=== PATIENT | male | born 1945 | race Caucasian/White ===

== ENCOUNTER 2016-08-14 16:33 | Inpatient (IN) | payer MEDICARE ==
[~2016-08-14] VITALS: Ht 177.8 cm; Wt 91.2 kg
[2016-08-14] MEDS ORDERED: TAMS0.4C34 PO (17:05)
[2016-08-14] MEDS ORDERED: HYDR25TA4 PO (17:05)
[2016-08-14] MEDS ORDERED: METF500T4 PO (17:05)
[2016-08-14] MEDS ORDERED: METO50TA3 PO (17:05)
[2016-08-14] MEDS ORDERED: ACET325T53 PO (17:05)
[2016-08-14] MEDS ORDERED: PRAZ2CAP2 PO (17:05)
--- NOTE | 2016-08-14 18:00 | NUR ---
PT MEDICALLY CLEARED, NO MHU AVAILABLE AT THIS TIME. TELEPHONE CLERKS SUPERVISOR AWARE.
--- NOTE | 2016-08-14 19:20 | NUR ---
Ray Peres contacted for PET evaluation and possible voluntary admission, ETA 20min.
--- NOTE | 2016-08-14 19:42 | NUR ---
Ray Peres at bedside for PET evaluation.
--- NOTE | 2016-08-14 21:29 | NUR ---
Pt. admitted to [facility], under care of Dr. Nowak. Belongs List completed
[2016-08-14] MEDS ORDERED: MAGNESIUM HYDROXIDE 30 ML LIQUID UDC PO PRN (22:30)
[2016-08-14] MEDS ORDERED: CLONAZEPAM 0.5 MG TABLET PO PRN (22:30)
[2016-08-14] MEDS ORDERED: TEMAZEPAM 7.5 MG CAPSULE PO PRN (22:30)
[2016-08-14] MEDS ORDERED: MAG HYDROX/AL HYDROX/SIMETH 30 ML LIQUID UDC PO PRN (22:30)
[2016-08-14] MEDS: ACETAMINOPHEN 325 MG TABLET PO PRN (22:48)
[2016-08-14] MEDS ORDERED: ACETAMINOPHEN 325 MG TABLET ONE (22:55)
[2016-08-14] MEDS ORDERED: HYDROCODONE/APAP 5-325MG TABLET PO PRN (23:15)
[2016-08-14] MEDS ORDERED: ONDANSETRON 4 MG/2 ML VIAL IV PRN (23:15)
[2016-08-14] MEDS ORDERED: ACETAMINOPHEN 325 MG TABLET PO PRN (23:15)
[2016-08-14] MEDS ORDERED: Z GUARD REMEDY PASTE 57 GM TUBE TOP PRN (23:15)
[2016-08-14] MEDS ORDERED: hydrALAZINE HCL 10 MG TABLET PO PRN (23:45)
[2016-08-14] MEDS ORDERED: DEXTROSE 50% 50 ML DISP.SYRIN IV PRN (23:45)
[2016-08-15] MEDS ORDERED: ONDANSETRON ODT 4 MG TAB.RAPDIS SL PRN (02:15)
[2016-08-15] MEDS: BLOOD SUGAR DIAGNOSTIC 1 EACH STRIP VI SCH ×4 (06:29→20:10)
[2016-08-15] MEDS: PANTOPRAZOLE SODIUM 40 MG TABLET.DR PO SCH ×2 (07:00→09:51)
[2016-08-15 07:30] VITALS: BP 102/66
[2016-08-15 07:30] LABS: BASOPHILS % (AUTO) 0.5 % (0.0-2.0); EOSINOPHILS # (AUTO) 0.4 K/uL (0.0-0.7); EOSINOPHILS % (AUTO) 6.1 % (0.0-7.0); HEMATOCRIT 35.6 % (40-50); HEMOGLOBIN 11.9 G/DL (14.0-18.0); LYMPHOCYTES # (AUTO) 1.4 K/UL (0.8-4.8); LYMPHOCYTES % (AUTO) 23.6 % (20.5-51.5); MEAN CORPUSCULAR HEMOGLOBIN 28.9 UUG (27.0-31.0); MEAN CORPUSCULAR HGB CONC 34 g/dL (32.0-37.0); MEAN CORPUSCULAR VOLUME 86.2 FL (82.0-92.0); MONOCYTES # (AUTO) 0.7 K/UL (0.1-1.30); MONOCYTES % (AUTO) 11.1 % (0.0-11.0); NEUTROPHILS # (AUTO) 3.5 K/UL (1.8-8.9); NEUTROPHILS % (AUTO) 58.7 % (38.5-71.5); PLATELET COUNT (AUTO) 199 K/UL (150-450); RED BLOOD CELL COUNT(AUTO) 4.13 MIL/UL (4.7-6.1)
[2016-08-15 08:20] LABS: CREATININE 1.4 mg/dL (0.6-1.3); MAGNESIUM 1.9 mg/dL (1.8-2.4)
[2016-08-15 12:30] LABS: BILIRUBIN,DIRECT 0.1 mg/dL (0.0-0.2); BILIRUBIN,TOTAL 0.8 mg/dL (0.2-1.0); TOTAL PROTEIN, SERUM 7.4 g/dL (6.4-8.2)
[2016-08-15] MEDS: METOPROLOL TARTRATE 50 MG TABLET PO SCH (16:38)
[2016-08-15] MEDS: PRAZOSIN HCL 1 MG CAPSULE PO SCH (16:46)
[2016-08-15 16:53] VITALS: BP 127/83
[2016-08-15] MEDS: METFORMIN HCL 500 MG TABLET PO SCH (17:35)
[2016-08-15 18:17] LABS: THYROID STIMULATING HORMONE 17.867 mIU/mL (0.358-3.740)
[2016-08-15] MEDS: ACETAMINOPHEN 325 MG TABLET PO PRN (18:36)
[2016-08-15] MEDS: ATORVASTATIN 10 MG TABLET PO SCH (20:10)
[2016-08-15] MEDS: TAMSULOSIN HCL 0.4 MG CAP.SR.24H PO SCH (20:11)
[2016-08-15 20:21] VITALS: BP 100/66
[2016-08-15] MEDS: INSULIN REGULAR, HUMAN 300 UNIT/3 ML VIAL SQ PRN (20:21)
[2016-08-15] MEDS ORDERED: SERTRALINE HCL 50 MG TABLET PO SCH (21:00)
[2016-08-16] MEDS: PANTOPRAZOLE SODIUM 40 MG TABLET.DR PO SCH (06:19)
[2016-08-16] MEDS: BLOOD SUGAR DIAGNOSTIC 1 EACH STRIP VI SCH ×4 (06:33→20:43)
--- NOTE | 2016-08-16 06:53 | NUR ---
GPS: REMAIN CALM AND COOPERATIVE WITH MEDS AND CARE. SLEPT 06:30 HRS THROUGH THE NIGHT. BLOOD SUGAR 91 MG/DL. NO BEHAVIOR PROBLEM NOTED.
[2016-08-16 07:30] VITALS: BP 111/80
[2016-08-16] MEDS: PRAZOSIN HCL 1 MG CAPSULE PO SCH ×2 (08:22→16:41)
[2016-08-16] MEDS: METOPROLOL TARTRATE 50 MG TABLET PO SCH ×2 (08:23→16:40)
[2016-08-16] MEDS: METFORMIN HCL 500 MG TABLET PO SCH ×2 (08:23→17:06)
[2016-08-16 08:55] LABS: CREATININE 1.3 mg/dL (0.6-1.3); POTASSIUM 4.4 mmol/L (3.5-5.1)
[2016-08-16] MEDS ORDERED: SERTRALINE HCL 50 MG TABLET PO SCH (12:15)
[2016-08-16] MEDS: SERTRALINE HCL 100 MG TABLET PO SCH (13:02)
[2016-08-16] MEDS: ACETAMINOPHEN 325 MG TABLET PO PRN (14:19)
[2016-08-16] MEDS: HYDROCHLOROTHIAZIDE 25 MG TABLET PO SCH (14:49)
--- NOTE | 2016-08-16 15:46 | NUR ---
Initial discharge instructions: The patient is currently homeless. His is currently inpatient at [facility] mental health unit. MANI asked the patient if she may contact his 's SW at [facility] and he agreed as long as his is okay with this. The patient allowed SW to contact his . MANI called patient's Bernardino Isabel at [facility] (access code [id number]) to see if she authorizes this SW to speak with her SW there in order to coordinate a DC plan for both patients. MANI has called MANI Ramirez and left her a voicemail, awaiting call back. MANI will speak with patient, family, and MD regarding most appropriate discharge plan. SS will form a safe and proper discharge.
[2016-08-16 16:00] VITALS: BP 99/71
[2016-08-16] MEDS: LEVOTHYROXINE SODIUM 25 MCG TABLET PO SCH (16:40)
[2016-08-16 20:08] VITALS: BP 116/82
[2016-08-16] MEDS: TAMSULOSIN HCL 0.4 MG CAP.SR.24H PO SCH (20:37)
[2016-08-16] MEDS: ATORVASTATIN 10 MG TABLET PO SCH ×2 (20:44→20:57)
[2016-08-17] MEDS: PANTOPRAZOLE SODIUM 40 MG TABLET.DR PO SCH (06:42)
[2016-08-17] MEDS: LEVOTHYROXINE SODIUM 25 MCG TABLET PO SCH (06:42)
[2016-08-17] MEDS: BLOOD SUGAR DIAGNOSTIC 1 EACH STRIP VI SCH ×4 (06:47→21:12)
[2016-08-17 07:30] VITALS: BP 130/89
[2016-08-17] MEDS: METOPROLOL TARTRATE 50 MG TABLET PO SCH ×2 (09:38→16:42)
[2016-08-17] MEDS: HYDROCHLOROTHIAZIDE 25 MG TABLET PO SCH (09:38)
[2016-08-17] MEDS: PRAZOSIN HCL 1 MG CAPSULE PO SCH ×2 (09:39→16:43)
[2016-08-17] MEDS: SERTRALINE HCL 100 MG TABLET PO SCH (09:39)
[2016-08-17] MEDS: METFORMIN HCL 500 MG TABLET PO SCH ×2 (09:40→18:09)
[2016-08-17] MEDS: ACETAMINOPHEN 325 MG TABLET PO PRN ×2 (10:06→23:19)
--- NOTE | 2016-08-17 11:00 | NUR ---
1100 Pt. reported tylenol effective for THOMPSON and back pain 04/07.
[2016-08-17 15:32] VITALS: BP 101/66
--- NOTE | 2016-08-17 19:00 | NUR ---
Pt. cooperative with nursing care, no distress noted. Pt. indep. of all ADL'S and eats all meals in dinning room. Pt. is social with staff and other Patients. Pt. uses phone to talk during the day.
[2016-08-17 20:24] VITALS: BP 125/78
[2016-08-17] MEDS: ATORVASTATIN 10 MG TABLET PO SCH (21:40)
[2016-08-17] MEDS: TAMSULOSIN HCL 0.4 MG CAP.SR.24H PO SCH (21:40)
--- NOTE | 2016-08-17 23:22 | NUR ---
PRN tylenol requested by patient for back pain 8 out of 10. Tylenol given per MD order. Will continue to monitor
[2016-08-18 07:30] VITALS: BP 120/85
[2016-08-18] MEDS: BLOOD SUGAR DIAGNOSTIC 1 EACH STRIP VI SCH ×4 (07:46→21:00)
[2016-08-18] MEDS: PANTOPRAZOLE SODIUM 40 MG TABLET.DR PO SCH (07:46)
[2016-08-18] MEDS: LEVOTHYROXINE SODIUM 25 MCG TABLET PO SCH (07:46)
[2016-08-18] MEDS: SERTRALINE HCL 100 MG TABLET PO SCH (08:39)
[2016-08-18] MEDS: METFORMIN HCL 500 MG TABLET PO SCH ×2 (08:40→17:12)
[2016-08-18] MEDS: HYDROCHLOROTHIAZIDE 25 MG TABLET PO SCH (08:40)
[2016-08-18] MEDS: METOPROLOL TARTRATE 50 MG TABLET PO SCH ×2 (08:40→22:57)
[2016-08-18] MEDS: PRAZOSIN HCL 1 MG CAPSULE PO SCH ×2 (08:41→23:07)
[2016-08-18] MEDS: ACETAMINOPHEN 325 MG TABLET PO PRN (09:31)
[2016-08-18] MEDS: INSULIN REGULAR, HUMAN 300 UNIT/3 ML VIAL SQ PRN ×3 (09:36→17:32)
[2016-08-18 16:33] VITALS: BP 123/85
[2016-08-18 20:32] VITALS: BP 137/96
[2016-08-18] MEDS: ATORVASTATIN 10 MG TABLET PO SCH (22:54)
[2016-08-18] MEDS: TAMSULOSIN HCL 0.4 MG CAP.SR.24H PO SCH (22:54)
[2016-08-19] MEDS: PANTOPRAZOLE SODIUM 40 MG TABLET.DR PO SCH (06:54)
[2016-08-19] MEDS: LEVOTHYROXINE SODIUM 25 MCG TABLET PO SCH (06:54)
[2016-08-19] MEDS: BLOOD SUGAR DIAGNOSTIC 1 EACH STRIP VI SCH ×2 (07:00→12:14)
[2016-08-19 07:30] VITALS: BP 106/70
[2016-08-19 07:58] LABS: BASOPHILS % (AUTO) 0.7 % (0.0-2.0); EOSINOPHILS # (AUTO) 0.2 K/uL (0.0-0.7); EOSINOPHILS % (AUTO) 3.6 % (0.0-7.0); HEMATOCRIT 36.6 % (40-50); HEMOGLOBIN 11.9 G/DL (14.0-18.0); LYMPHOCYTES # (AUTO) 1.2 K/UL (0.8-4.8); LYMPHOCYTES % (AUTO) 19.5 % (20.5-51.5); MEAN CORPUSCULAR HEMOGLOBIN 28.6 UUG (27.0-31.0); MEAN CORPUSCULAR HGB CONC 33 g/dL (32.0-37.0); MEAN CORPUSCULAR VOLUME 87.4 FL (82.0-92.0); MONOCYTES # (AUTO) 0.7 K/UL (0.1-1.30); MONOCYTES % (AUTO) 10.9 % (0.0-11.0); NEUTROPHILS % (AUTO) 65.3 % (38.5-71.5); PLATELET COUNT (AUTO) 232 K/UL (150-450); RED BLOOD CELL COUNT(AUTO) 4.18 MIL/UL (4.7-6.1); WHITE BLOOD COUNT (AUTO) 6.1 K/UL (4.0-11.2)
[2016-08-19 08:02] LABS: CREATININE 1.3 mg/dL (0.6-1.3); MAGNESIUM 1.9 mg/dL (1.8-2.4); PHOSPHOROUS 3.5 mg/dL (2.5-4.9); TOTAL PROTEIN, SERUM 7.5 g/dL (6.4-8.2)
[2016-08-19] MEDS ORDERED: SERTRALINE HCL 100 MG TABLET PO SCH (09:00)
[2016-08-19] MEDS: METFORMIN HCL 500 MG TABLET PO SCH ×2 (09:59→17:23)
[2016-08-19] MEDS: SERTRALINE HCL 50 MG TABLET PO SCH (10:00)
[2016-08-19] MEDS: HYDROCHLOROTHIAZIDE 25 MG TABLET PO SCH (10:07)
[2016-08-19] MEDS: METOPROLOL TARTRATE 50 MG TABLET PO SCH ×2 (10:08→20:40)
[2016-08-19] MEDS: PRAZOSIN HCL 1 MG CAPSULE PO SCH ×2 (10:10→20:40)
[2016-08-19] MEDS: ACETAMINOPHEN 325 MG TABLET PO PRN ×2 (10:15→21:06)
[2016-08-19] MEDS ORDERED: INSULIN REGULAR, HUMAN 300 UNIT/3 ML VIAL SQ PRN (12:33)
[2016-08-19] MEDS ORDERED: DEXTROSE 50% 50 ML DISP.SYRIN IV PRN (12:34)
[2016-08-19 15:45] VITALS: BP 109/71
[2016-08-19 20:05] VITALS: BP 129/72
[2016-08-19] MEDS: ATORVASTATIN 10 MG TABLET PO SCH (20:39)
[2016-08-19] MEDS: TAMSULOSIN HCL 0.4 MG CAP.SR.24H PO SCH (20:39)
[2016-08-20] MEDS: LEVOTHYROXINE SODIUM 25 MCG TABLET PO SCH (06:30)
[2016-08-20] MEDS: PANTOPRAZOLE SODIUM 40 MG TABLET.DR PO SCH (06:30)
[2016-08-20] MEDS ORDERED: BLOOD SUGAR DIAGNOSTIC 1 EACH STRIP VI SCH (07:00)
[2016-08-20 07:30] VITALS: BP 114/78
[2016-08-20] MEDS: METFORMIN HCL 500 MG TABLET PO SCH ×2 (08:40→17:50)
[2016-08-20] MEDS: PRAZOSIN HCL 1 MG CAPSULE PO SCH ×2 (08:41→20:22)
[2016-08-20] MEDS: HYDROCHLOROTHIAZIDE 25 MG TABLET PO SCH (08:42)
[2016-08-20] MEDS: METOPROLOL TARTRATE 50 MG TABLET PO SCH ×2 (08:42→20:21)
[2016-08-20] MEDS: SERTRALINE HCL 50 MG TABLET PO SCH (08:42)
[2016-08-20] MEDS: ACETAMINOPHEN 325 MG TABLET PO PRN ×2 (10:49→21:25)
[2016-08-20 15:39] VITALS: BP 104/67
[2016-08-20 19:45] VITALS: BP 116/73
[2016-08-20] MEDS: TAMSULOSIN HCL 0.4 MG CAP.SR.24H PO SCH (20:20)
[2016-08-20] MEDS: ATORVASTATIN 10 MG TABLET PO SCH (20:20)
--- NOTE | 2016-08-20 21:15 | NUR ---
PATIENT RECEIVED IN ACTIVITIES ROOM WATCHING T.V. PATIENT A/O X3.EASILY IRRITABLE, AND EASILY AGITATED WILL CONTINUE TO MONITOR AND REDIRECT NEEDED. PATIENT IS ABLE TO MAKE NEEDS KNOWN. PATIENT COMPLAINT WITH HS MEDICATION. PATIENT DENIES SI, PATIENT ENCOURAGED TO EXPRESS FEELINGS AND CONCERNS. NO AGGRESSIVE OR COMBATIVE BEHAVIOR NOTED WILL CONTINUE TO MONITOR.
[2016-08-21] MEDS: LEVOTHYROXINE SODIUM 25 MCG TABLET PO SCH (06:33)
[2016-08-21] MEDS: PANTOPRAZOLE SODIUM 40 MG TABLET.DR PO SCH (06:33)
[2016-08-21] MEDS: BLOOD SUGAR DIAGNOSTIC 1 EACH STRIP VI SCH (06:39)
[2016-08-21] MEDS ORDERED: INSULIN REGULAR, HUMAN 300 UNIT/3 ML VIAL SQ PRN (06:54)
[2016-08-21] MEDS ORDERED: DEXTROSE 50% 50 ML DISP.SYRIN IV PRN (06:55)
[2016-08-21 07:30] VITALS: BP 119/79
[2016-08-21] MEDS: SERTRALINE HCL 50 MG TABLET PO SCH (08:22)
[2016-08-21] MEDS: METFORMIN HCL 500 MG TABLET PO SCH ×2 (08:22→17:36)
[2016-08-21] MEDS: PRAZOSIN HCL 1 MG CAPSULE PO SCH ×2 (08:22→20:31)
[2016-08-21] MEDS: METOPROLOL TARTRATE 50 MG TABLET PO SCH ×2 (08:32→20:31)
[2016-08-21] MEDS: HYDROCHLOROTHIAZIDE 25 MG TABLET PO SCH (08:32)
--- NOTE | 2016-08-21 13:06 | NUR ---
Metallurgical Specialist Spoke with the patient on 08/16/16 and asked the patient if sw may contact his 's SW at [facility] and he agreed as long as his is okay with this. The patient allowed SW to contact his . KYREE called patient's Bernardino Isabel at [facility] (access code [id number]) to see if she authorizes this SW to speak with her SW there in order to coordinate a DC plan for both patients. KYREE had called KYREE Ashley and left her a voicemail multiple times last week with no response back. Kyree attempted to contact any SW at [facility] however each time sw called, their staff stated that there were no SWs available. KYREE spoke with the patient on 08/18/16 who stated that he spoke with his and that she was discharged from [facility] "onto the street". When asked to elaborate, the patient stated that she was sent to [facility] in an ambulance and that she is "waiting in the waiting room." The patient asked the SW to call the hospital ([facility]) and try to get a hold of his . SW called [facility] ([phone]) however they stated that his , Bernardino Isabel, was not in their system. SW then asked to be transferred to the [facility] to speak with their front worker and see if the patient was there however again, the patient was not there. KYREE spoke with the patient today and he stated that his had come to [facility] ER on Sunday (08/19/16) with the hope of being admitted to the mental health unit. He stated that she arrived at 6:00 pm that evening and was discharged from the ER. The patient stated that he is waiting for his check to arrive at [facility] so that he can go rainey his check and travel to [place] with his so that they can sweet pickle maker 2 additional checks that will be mailed there soon. His plan is to then move to [place] with his . KYREE offered to place the patient at a short term SNF or assisted living facility, however the patient refused, stating that he does not want placement and "just want to get my checks and my and go to [place]". SW also offered to help the patient find placement for his , however patient refused. The patient does not know where his is currently and is waiting for her to call him.
[2016-08-21 15:21] VITALS: BP 105/77
[2016-08-21] MEDS: ACETAMINOPHEN 325 MG TABLET PO PRN ×2 (16:32→23:17)
[2016-08-21] MEDS: ATORVASTATIN 10 MG TABLET PO SCH (20:30)
[2016-08-21] MEDS: TAMSULOSIN HCL 0.4 MG CAP.SR.24H PO SCH (20:30)
[2016-08-21 20:39] VITALS: BP 119/76
--- NOTE | 2016-08-21 21:07 | NUR ---
PATIENT RECEIVED IN ACTIVITIES ROOM WATCHING T.V. PATIENT A/O X3.EASILY IRRITABLE, AND EASILY AGITATED WILL CONTINUE TO MONITOR AND REDIRECT NEEDED. PATIENT IS ABLE TO MAKE NEEDS KNOWN. PATIENT COMPLAINT WITH HS MEDICATION. PATIENT DENIES SI, PATIENT ENCOURAGED TO EXPRESS FEELINGS AND CONCERNS. NO AGGRESSIVE OR COMBATIVE BEHAVIOR NOTED WILL CONTINUE TO MONITOR. PATIENT IS AMBULATORY AND ABLE TO MAKE NEEDS KNOWN. PATIENT STATED "FEELING ANXIOUS ABOUT AND HER WHEREABOUTS."
[2016-08-22] MEDS: PANTOPRAZOLE SODIUM 40 MG TABLET.DR PO SCH (06:19)
[2016-08-22] MEDS: LEVOTHYROXINE SODIUM 25 MCG TABLET PO SCH (06:19)
[2016-08-22] MEDS: BLOOD SUGAR DIAGNOSTIC 1 EACH STRIP VI SCH (06:37)
[2016-08-22 07:30] VITALS: BP 108/71
[2016-08-22] MEDS: METFORMIN HCL 500 MG TABLET PO SCH ×2 (08:22→17:39)
[2016-08-22] MEDS ORDERED: SERTRALINE HCL 100 MG TABLET PO SCH (09:00)
[2016-08-22] MEDS: HYDROCHLOROTHIAZIDE 25 MG TABLET PO SCH (09:10)
[2016-08-22] MEDS: METOPROLOL TARTRATE 50 MG TABLET PO SCH ×2 (09:10→20:04)
[2016-08-22] MEDS: PRAZOSIN HCL 1 MG CAPSULE PO SCH ×2 (09:11→20:03)
[2016-08-22] MEDS: ACETAMINOPHEN 325 MG TABLET PO PRN (09:15)
[2016-08-22 15:20] VITALS: BP 101/79
[2016-08-22 19:30] VITALS: BP 125/83
[2016-08-22] MEDS: TAMSULOSIN HCL 0.4 MG CAP.SR.24H PO SCH (20:03)
[2016-08-22] MEDS: ATORVASTATIN 10 MG TABLET PO SCH (20:03)
[2016-08-22 20:04] VITALS: BP 125/83
--- NOTE | 2016-08-22 20:42 | NUR ---
Nurses notes:GPS At approx 2041, Patient was discharged from [facility] in stable condition with no complains of pain or discomfort, with all his belongings and medication. Patient was accompanied by his . All his 2100 medication were given.
--- NOTE | 2016-08-24 09:22 | NUR ---
DC Note: The patient was discharged on 08/22/16 unexpectedly. The patient was offered SNF, Board and Care, or Assisted Living placement upon admission as well as earlier that day, however the patient refused and stated that his plan was to meet with his and go to [place]. The patient stated that he first wanted to go to [place] [employer] [[address] [place] [address]; ] and tile picker his check that was sent there by his friend in [place]. The patient stated that he is very familiar with the [place] area and the resources that are available there. He stated that he would follow up with his own chief technician x ray and psychiatrist once he returned to [place]. The DC plan was for the patient to wait until 08/23/16 and to be provided with a taxi voucher to the [employer] so that he can tile picker his check and make arrangements to travel to [place].
== END 2016-08-22 20:54 | disposition home or self-care (01) | DRG 885 ==
LOC: ER 16:45 → GPS 21:20
PROVIDERS: ADMIT Psychiatry & Neurology Psychiatry; ATTEND Internal Medicine
DX: F33.2 Major depressive disorder, recurrent severe without psychotic features (principal); N17.0 Acute kidney failure with tubular necrosis; E11.65 Type 2 diabetes mellitus with hyperglycemia; E87.1 Hypo-osmolality and hyponatremia; Z59.0 Homelessness; Z79.84 Long term (current) use of oral hypoglycemic drugs; Z79.899 Other long term (current) drug therapy; E03.9 Hypothyroidism, unspecified; D64.9 Anemia, unspecified; M48.00 Spinal stenosis, site unspecified; N40.0 Benign prostatic hyperplasia without lower urinary tract symptoms; F41.9 Anxiety disorder, unspecified; I10 Essential (primary) hypertension; E66.3 Overweight; Z68.28 Body mass index [BMI] 28.0-28.9, adult
CPT/HCPCS: 36415; 71010; 83735; 84100; 84443; 85025; 93005; J1815